=== PATIENT | male | born 1945 | race Caucasian/White ===

== ENCOUNTER 2022-10-23 09:42 | Oncology outpatient (recurring) (ONCR) | payer OTHER, SELFPAY ==
[2022-10-23 10:46] LABS: Basophils # 0.2 10^3/uL (0.0-0.1); Basophils % 1.2 %; Eosinophils # 0.2 10^3/uL (0.0-0.8); Eosinophils % 1.5 %; Hematocrit 58.5 % (42.0-52.0); Hemoglobin 18.9 g/dL (11.7-16.6); Lymphocytes # 1.7 10^3/uL (0.8-4.8); Lymphocytes % 13.5 %; Mean Corpuscular HGB Conc 32.3 g/dL (30.0-36.0); Mean Corpuscular Hemoglobin 24.5 pg (28.0-34.0); Mean Corpuscular Volume 75.8 fl (80-94); Mean Platelet Volume 9.2 fL (7.4-10.4); Monocytes # 1.1 10^3/uL (0.2-0.9); Monocytes % 9.1 %; Neutrophils # 9.28 10^3/uL (1.8-7.7); Neutrophils % 74.2 %; Nucleated Red Blood Cells % 0 %; Platelet Count 1199 10^3/cmm (130-400); Red Blood Count 7.72 10^6/uL (4.1-5.3); Red Cell Distribution Width 20.3 % (12.1-15.1); White Blood Count 12.5 10^3/uL (4.0-10.0)
[2022-10-23 11:02] LABS: Alanine Aminotransferase 12 U/L (0-41); Alkaline Phosphatase 116 U/L (40-130); Anion Gap 16.4 (5-19); Aspartate Amino Transferase 22 U/L (0-40); Blood Urea Nitrogen 14 mg/dL (8-23); Calcium 9.3 mg/dL (8.5-10.5); Carbon Dioxide 22 mmol/L (22-29); Chloride 104 mmol/L (98-107); Globulin 3.3 g/dL (1.3-4.6); Glucose 107 mg/dL (65-115); Lactate Dehydrogenase 320 U/L (135-225); Osmolality Calculated 287 mOsm/kg (285-295); Potassium 4.4 mmol/L (3.5-5.1); Sodium 138 mmol/L (136-145); Total Bilirubin 0.7 mg/dL (0.15-1.2); Total Protein 7.3 g/dL (6.6-8.7)
[2022-10-26 18:25] LABS: Erythropoietin 1.6 mIU/mL (2.6-18.5)
[2022-11-05 23:09] LABS: JAK2 V617 Block Specimen ID N; JAK2 V617 Clinical Indication NG; JAK2 V617 Mutation DETECTED (NOT DETECTED); JAK2 V617 Specimen Source EDTA
== END 2022-11-20 23:59 | disposition home or self-care (01) ==
LOC: ONCMED 09:43
PROVIDERS: Visit Provider Internal Medicine Medical Oncology
DX: D45 Polycythemia vera (principal); Z79.82 Long term (current) use of aspirin; Z79.899 Other long term (current) drug therapy; Z87.891 Personal history of nicotine dependence
CPT/HCPCS: 36415; 80053; 81270; 82668; 83615; 85025; 99205

== ENCOUNTER 2023-04-01 13:45 | Oncology outpatient (recurring) (ONCR) | payer OTHER, SELFPAY ==
[2023-04-01 14:39] VITALS: BP 135/78; PULSE 65; RESP 18; TEMP 37; O2SAT 95
[2023-04-01 14:51] LABS: Basophils # 0.1 10^3/uL (0.0-0.1); Eosinophils # 0.2 10^3/uL (0.0-0.8); Eosinophils % 1.5 %; Hematocrit 57.1 % (42.0-52.0); Hemoglobin 18.1 g/dL (11.7-16.6); Lymphocytes # 1.8 10^3/uL (0.8-4.8); Lymphocytes % 12.6 %; Mean Corpuscular HGB Conc 31.7 g/dL (30.0-36.0); Mean Corpuscular Hemoglobin 23.4 pg (28.0-34.0); Mean Corpuscular Volume 73.7 fl (80-94); Mean Platelet Volume 8.8 fL (7.4-10.4); Monocytes # 1.3 10^3/uL (0.2-0.9); Monocytes % 8.8 %; Neutrophils # 10.95 10^3/uL (1.8-7.7); Neutrophils % 75.6 %; Nucleated Red Blood Cells % 0 %; Red Blood Count 7.75 10^6/uL (4.1-5.3); Red Cell Distribution Width 21.1 % (12.1-15.1); White Blood Count 14.5 10^3/uL (4.0-10.0)
[2023-04-01 15:10] LABS: Platelet Count 1794 10^3/cmm (130-400); Slide Review Slide Review Perform
[2023-04-01 16:30] VITALS: BP 118/74; PULSE 69; RESP 18; TEMP 36.4; O2SAT 98
[2023-04-01 17:07] LABS: Alanine Aminotransferase 29 U/L (0-41); Albumin Level 4.1 g/dL (3.5-5.2); Alkaline Phosphatase 120 U/L (40-130); Aspartate Amino Transferase 31 U/L (0-40); Blood Urea Nitrogen 17 mg/dL (8-23); Calcium 9.3 mg/dL (8.5-10.5); Carbon Dioxide 23 mmol/L (22-29); Chloride 100 mmol/L (98-107); Globulin 3.6 g/dL (1.3-4.6); Glucose 86 mg/dL (65-115); Osmolality Calculated 285 mOsm/kg (285-295); Sodium 137 mmol/L (136-145); Total Bilirubin 0.6 mg/dL (0.15-1.2); Total Protein 7.7 g/dL (6.6-8.7)
[2023-04-01 17:15] LABS: Anion Gap 18.8 (5-19); Potassium 4.8 mmol/L (3.5-5.1)
== END 2023-04-22 23:59 | disposition home or self-care (01) ==
PROVIDERS: Visit Provider Internal Medicine Medical Oncology
DX: D45 Polycythemia vera (principal); Z79.82 Long term (current) use of aspirin; Z79.899 Other long term (current) drug therapy; Z87.891 Personal history of nicotine dependence
CPT/HCPCS: 36415; 80053; 85025; 99195; 99214

== ENCOUNTER 2023-04-20 19:54 | Inpatient (IN) | payer OTHER, SELFPAY ==
[2023-04-20] VITALS (18 sets, daily range): BP systolic 127–188; BP diastolic 65–99; PULSE 43–72; RESP 15–25; TEMP 36.4; O2SAT 93–98; BMI 28.5
--- NOTE | 2023-04-20 20:25 | ECG_ITS ---
[facility] Test Date: 2023-04-20 Pat Name: Scooter Elias Department: Room: [facility] Gender: Male [employer]: : 1945 Requested By: Fidencio Rivera Order Number: [id number] Yani MD: Leeanne Kaufman M.D. Measurements Intervals [place] Rate: 43 P: -1 GA: 229 QRS: 27 QRSD: 81 T: -33 QT: 448 QTc: 382 Interpretive Statements SINUS BRADYCARDIA WITH SINUS ARRHYTHMIA WITH FIRST DEGREE AV BLOCK NONSPECIFIC T-WAVE ABNORMALITY Compared to ECG 11/16/2017 11:15:16 T-wave abnormality now present Prolonged QT interval no longer present Electronically Signed On 04-20-2023 23:59:26 CDT by Leeanne Kaufman M.D. [email or web address] REBATEaultman [id number]
[2023-04-20 21:00] LABS: Basophils # 0.1 10^3/uL (0.0-0.1); Basophils % 1.3 %; Eosinophils % 0.4 %; Hematocrit 47.9 % (37-53); Lymphocytes # 1.2 10^3/uL (0.8-4.8); Lymphocytes % 22.2 %; Mean Corpuscular HGB Conc 32.4 g/dL (30-55); Mean Corpuscular Hemoglobin 23.9 pg (27-33); Mean Corpuscular Volume 73.8 fl (82-101); Monocytes # 0.2 10^3/uL (0.2-0.9); Monocytes % 3.9 %; Neutrophils # 3.83 10^3/uL (1.8-7.7); Nucleated Red Blood Cells % 0 %; Platelet Count 323 10^3/cmm (157-399); Red Blood Count 6.49 10^6/uL (3.85-5.65); Red Cell Distribution Width 20.9 % (12.1-15.1); White Blood Count 5.32 10^3/uL (3.29-11.43)
--- NOTE | 2023-04-20 21:06 | PC.NURSE ---
Addendum entered by Enedina Jernigan RN 04/20/23 21:16: Verbal order to start Heparin drip @2049. Original Note: Admit to ICU: Pt arrived to ICU 4 via stretcher w/ EMS crew @bedside @1952. Pt reporting 0/[address] Rivera contacted to update on pt arrival. New order for lab work and EKG. Dr. Rivera @bedside around 2049 to speak w/ pt.
--- NOTE | 2023-04-20 21:17 | PM.HP ---
Providers/Chief Complaint Admitting Physician: Nicole Primary Care Provider: Vicente Rosa DO Chief Complaint: Left PE, Bradycardia History of Present Illness Scooter Elias Sr is a 77 year old male with recent history of stroke (11/2022) and NV (02/2023) and recently diagnosed polycythemia vera presents due to his heart rate monitor company alerting him that his heart rate was low. Per the patient's significant other who he does not live with she states that patient's sister reports that he has been short of breath weak and dizzy at home. Patient stoically denies this. He was seen at [facility] he was bradycardic. Due to this history given by the sister of shortness of breath CTA of the chest was performed that found a pulmonary embolus in the left upper lobe region. He was started on heparin and transferred here to [facility]. To me the patient has no complaints. Again the significant other reports that patient has had shortness of breath and dizziness over the last couple of days. He wears a heart monitor and has been contacted twice now regarding a low heart rate. He currently denies chest pain shortness of breath dizziness or lightheadedness. He does report dizziness upon laying at times. Review of Systems Const: Denies: fever(s) or chills Eyes: Denies: change in vision ENMT: Denies: throat pain or nasal congestion Card: Denies: chest pain or palpitations Resp: Denies: dyspnea or productive cough GI: Denies: abdominal pain, nausea, vomiting or change in stool character : Denies: difficulty urinating or dysuria Musc: Denies: back pain or extremity pain Skin/Breast: Denies: rash or lesions Neuro: Denies: headache(s) or dizziness Psych: Denies: anxiety or depression Domingo/Lymph: Denies: easy bruising or easy bleeding Medications/Allergies Home Medications Medication Instructions Recorded Confirmed Last Taken Type aspirin 81 mg chewable tablet 81 mg PO DAILY 04/01/23 04/20/23 04/19/23 History atorvastatin 80 mg tablet 80 mg PO DAILY 04/01/23 04/20/23 04/19/23 History clopidogrel 75 mg tablet 75 mg PO DAILY 04/01/23 04/20/23 04/19/23 History hydroxyurea 500 mg capsule 1,000 mg PO BID #120 caps 04/01/23 04/20/2323 Rx lisinopril 5 mg tablet 5 mg PO DAILY 04/01/23 04/20/23 04/19/23 History Allergies Allergy/AdvReac Type Severity Reaction Status Date / Time No Known Allergies Allergy Verified 04/20/23 20:15 PFSH Acute PFSH: Medical History Benign prostatic hyperplasia Coronary artery disease Erectile dysfunction History of myocardial infarction History of stroke Vitamin D deficiency Surgical History History of back surgery History of cholecystectomy History of coronary artery stent placement History of foot surgery Bone spur both heels Family History Father Lung disease Denies family history of Diabetes CAD (coronary artery disease) Clotting disorder Dementia Hyperlipidemia Psychiatric illness Chronic kidney disease (CKD) Suicide Anesthesia complication Bleeding disorder Cancer Hypertension Stroke Social History Smoking and tobacco status: former smoker Quit status (tobacco): has quit using tobacco Former quit date comment: smoked 6 months, stopped 30 years ago Vitals/I&O/Wt Last Vital Signs Pulse 43 L 04/20/23 20:27 O2 Del Method Room Air 04/20/23 20:09 Weight last 48 hrs Weight 98.293 kg Physical Exam Narrative: [age]-year-old male in no acute distress at time of exam Neurologic: Alert and oriented to person place time and situation patient is nonfocal. HEENT: Head is normocephalic atraumatic pupils equal round reactive to light and accommodation extraocular muscles are intact there is no scleral icterus neck is supple no JVD carotid bruits or lymphadenopathy mucous membranes are moist pink without lesions or exudates Chest: Rises symmetrically with inspiration Heart: Normal S1-S2 without murmurs clicks gallops or rubs Respiratory. Clear to auscultation no wheezes rales or rhonch abdomen soft nontender nondistended positive bowel sounds no hepatosplenomegaly Extremities: 4 present no significant peripheral edema Back: No significant scoliosis or kyphosis identified no CVA tenderness Lymphatic: No supraclavicular axillary or inguinal lymph adenopathy noted Skin: Warm and dry to touch no lesions or rashes noted Psych: Mood and affect are appropriate. Data 04/20/23 20:52 04/20/23 20:52 Other Labs: CTA done at another hospital reports of a left upper lobe thrombus. A&P Assessment and plan (1) Polycythemia rubra vera: (2) Pulmonary embolism: (3) Bradycardia: (4) Status post CVA: (5) Status post myocardial infarction: Plan Patient was admitted to the ICU for close monitoring due to the bradycardia. He will be restarted on heparin. For now we will continue aspirin and Plavix due to recent NV with stent 1 month ago. Currently polycythemia vera is controlled on hydroxyurea with a normal platelet level. Initially, I had concerns regarding the diagnosis of PE but once the significant other explained to me patient's symptoms prior the diagnosis of pulmonary embolus is less suspect. There is literature that discusses the over diagnosis of PE due to the sensitivity of our CT scans now. If this is at all a concern recommend repeat CTA here. patient is lacking the typical sign of tachycardia patient could have shortness of breath and lightheadedness due to bradycardia. Tomorrow he can get up and walk and assess his symptoms. We will continue patient's CAROLYN inhibitor. If blood pressure continues to be elevated would increase dose. For now using as needed hydralazine. Otherwise continue home meds for recent diagnosis of stroke and NV. Attestations Medical Necessity Statement*: It is likely patient's care will necessitate 2 midnight stay for PE and bradycardia. Coding Level of Care Code Acute Code for [facility] Fwd Diagnoses Polycythemia rubra vera D45 Pulmonary embolism I26.99 Bradycardia R00.1 Status post CVA Z86.73 Status post myocardial infarction I25.2
[2023-04-20 21:20] LABS: Blood Urea Nitrogen 19 mg/dL (8-23); Calcium 8.8 mg/dL (8.5-10.5); Carbon Dioxide 28 mmol/L (22-29); Chloride 104 mmol/L (98-107); Glucose 91 mg/dL (65-115); Osmolality Calculated 288 mOsm/kg (285-295); Sodium 138 mmol/L (136-145)
[2023-04-20] MEDS: heparin drip 25,000 UNIT/500 ML PREMIX 27.99 UNIT IV (21:26)
[2023-04-20 21:27] LABS: Partial Thromboplastin Time 136.3 SECONDS (23.9-36.7)
[2023-04-20] MEDS: hyDRALAzine 20 mg/mL INJ 1 mL 10 MG IVP (22:51)
[2023-04-21] VITALS (38 sets, daily range): BP systolic 104–159; BP diastolic 48–83; PULSE 40–76; RESP 16–24; TEMP 36.3–37.1; O2SAT 92–97
[2023-04-21 03:01] LABS: Partial Thromboplastin Time 79.5 SECONDS (23.9-36.7)
[2023-04-21 03:19] LABS: Basophils # 0.1 10^3/uL (0.0-0.1); Basophils % 1.3 %; Eosinophils % 0.4 %; Hematocrit 48.3 % (37-53); Lymphocytes # 1.2 10^3/uL (0.8-4.8); Lymphocytes % 22.2 %; Mean Corpuscular HGB Conc 32.5 g/dL (30-55); Mean Corpuscular Hemoglobin 23.9 pg (27-33); Mean Corpuscular Volume 73.5 fl (82-101); Mean Platelet Volume 8.8 fL (7.4-10.4); Monocytes # 0.2 10^3/uL (0.2-0.9); Monocytes % 3.7 %; Neutrophils # 3.88 10^3/uL (1.8-7.7); Neutrophils % 72.2 %; Nucleated Red Blood Cells % 0 %; Platelet Count 282 10^3/cmm (157-399); Red Blood Count 6.57 10^6/uL (3.85-5.65); Red Cell Distribution Width 20.8 % (12.1-15.1); White Blood Count 5.37 10^3/uL (3.29-11.43)
[2023-04-21 03:33] LABS: Anion Gap 12.7 (5-19); Blood Urea Nitrogen 20 mg/dL (8-23); Calcium 8.8 mg/dL (8.5-10.5); Carbon Dioxide 25 mmol/L (22-29); Chloride 106 mmol/L (98-107); Glucose 86 mg/dL (65-115); Osmolality Calculated 292 mOsm/kg (285-295); Potassium 3.7 mmol/L (3.5-5.1); Sodium 140 mmol/L (136-145)
[2023-04-21] MEDS: clopidogrel 75 mg Tablet PO (09:10)
[2023-04-21] MEDS: aspirin 81 mg Chew Tablet PO (09:10)
[2023-04-21] MEDS: lisinopril 5 mg Tablet PO (09:11)
[2023-04-21] MEDS: docusate sodium 100 mg Capsule PO (09:11)
[2023-04-21] MEDS: hydroxyurea 500 mg Capsule 1000 MG PO ×2 (09:12→21:08)
[2023-04-21 09:50] LABS: Partial Thromboplastin Time 55.7 SECONDS (23.9-36.7)
--- NOTE | 2023-04-21 09:57 | PC.NURSE ---
Heparin Drip: PTT 55.7 - No change according to protocol.
[2023-04-21 11:17] LABS: Magnesium 1.9 mg/dL (1.7-2.3); Thyroid Stimulating Hormone 1.75 uIU/mL (0.27-4.20)
--- NOTE | 2023-04-21 12:59 | USCV_ITS ---
Curt Scooter Age: 77 Gender: M : 1945 Exam Date: 04/21/2023 15:29 Ordering Phys: Francisco Singh MD Technologist: MAGUI Exam Location: [facility] Indication: BRADYCARDIA, PE BP: 113 / 72 HR: 55 Rhythm: Sinus Technical Quality: Suboptimal MEASUREMENTS (Male / Female) Normal Values 2D ECHO LVOT Diameter 2.0 cm LV Ejection Fraction MOD 2C 64.5 % LV Ejection Fraction 2C AL 66.9 % LA Diameter 3.6 cm LA Width 3.5 cm LA Height 5.2 cm RA Width 4.2 cm RA Height 5.6 cm Aorta at Sinotubular Diameter 2.2 cm M-MODE Aortic Annulus Diameter 3.5 cm LA Ao Ratio MM 1.0 DOPPLER AV Peak Velocity 177.5 cm/s LVOT Peak Velocity 104.0 cm/s AV Area Cont Eq vti 2.2 cm squared AV Area Cont Eq pk 1.9 cm squared MV Peak Velocity 88.0 cm/s MV Area PHT 2.1 cm squared Mitral E to A Ratio 0.6 MV E' Velocity 30.0 cm/s Mitral E to MV E' Ratio 4.2 Mitral E to LV E' Lateral Ratio 3.2 Mitral E to LV E' Septal Ratio 6.0 TR Peak Velocity 159.7 cm/s TR Peak Gradient 10.2 mmHg TR Mean Velocity 116.8 cm/s TR Mean Gradient 6.4 mmHg TR Velocity Time Integral 37.0 cm TV Peak E Velocity 50.0 cm/s Right Atrial Pressure 8.0 mmHg Pulmonary Artery Systolic Pressu 18.2 mmHg PV Peak Velocity 71.0 cm/s RV Acceleration Time 0.2 s RV Ejection Time 0.4 s RV AcT/ET 0.5 FINDINGS Left Ventricle Left ventricle is normal size. LV systolic function is normal with EF of 55 to 60%. No regional wall motion abnormalities are seen. Grade 1 diastolic dysfunction Right Ventricle Normal in size and function Right Atrium Normal in size Left Atrium Normal size Mitral Valve Structurally normal mitral valve. Trace mitral regurgitation. Aortic Valve Structurally normal aortic valve. Mild aortic stenosis with aortic valve area of 1.85 cm squared and mean gradient across aortic valve of 11 mmHg. Tricuspid Valve Mild tricuspid regurgitation. Pulmonary artery systolic pressure is normal. Pulmonic Valve Not well-visualized Pericardium Normal Aorta Normal in size IVC Not well visualized CONCLUSIONS LV systolic function is normal with EF of 55 to 60% Grade 1 diastolic dysfunction Trace mitral regurgitation Mild aortic stenosis Mild tricuspid regurgitation Compared to prior echocardiogram from 2018, patient now has mild aortic stenosis. Jaya Juan MD (Electronically Signed) Final Date: 21 April 2023 17:13 S
--- NOTE | 2023-04-21 14:43 | PC.NURSE ---
Patient transferred to CSU 106, Patient resting in bed with and RN at bedside, patient had no questions at the time of transfer. All belongings with patient are at bedside.
[2023-04-21 16:15] LABS: Partial Thromboplastin Time 49.8 SECONDS (23.9-36.7)
--- NOTE | 2023-04-21 17:15 | P.PN_ITS ---
Subjective Subjective: He states he doing all right. Denies any lightheadedness, dizziness, chest pain, he is not short of breath. Denies pleuritic pain or discomfort. Vitals/I&O/Wt Last Vital Signs Temp 98.8 F 04/21/23 13:00 Pulse 52 L 04/21/23 16:00 Resp 16 04/21/23 16:00 BP 127/72 04/21/23 16:00 Pulse Ox 94 04/21/23 16:00 O2 Del Method Room Air 04/21/23 16:00 04/21/23 04/21/23 04/21/23 06:59 14:59 22:59 Intake Total 121.633 / 125.365 360 / 360 Output Total 900 / 1440 1050 / 1050 Balance -778.367 / -1314.635 -690 / -690 Weight last 48 hrs Weight 98.384 kg Weight 98.293 kg Physical Exam Const: COMMON NORMALS: patient oriented x3 and alert GENERAL APPEARANCE: cooperative ORIENTATION/CONSCIOUSNESS: Yes awake HENMT: COMMON NORMALS: oropharynx normal Neck/C-Spine: COMMON NORMALS: no JVD Chest: OTHER: Cardiac event monitor. Resp: COMMON NORMALS: normal respiratory effort and clear to auscultation bilaterally AUSCULTATION: clear to auscultation bilaterally Cardio: COMMON NORMALS: no JVD, regular rhythm, S1 normal heart sound present, S2 normal heart sound present and No murmurs present (Cardio) RHYTHM: regular rhythm HEART SOUNDS: S1 normal heart sound present and S2 normal heart sound present GI: COMMON NORMALS: Normal to inspection, nondistended, normoactive bowel sounds present, Soft to palpation and non-tender PALPATION: Yes Soft to palpation Extremity: COMMON NORMALS: no joint enlargement and no pedal edema Neuro: COMMON NORMALS: patient oriented x3 and moves all extremities SENSORIUM/ORIENTATION: Yes alert Skin: COMMON NORMALS: no rashes or lesions noted GENERAL SKIN EXAM: no rashes or lesions noted Data 04/21/23 02:33 04/21/23 02:33 A&P Assessment and plan (1) Polycythemia rubra vera: Continue hydroxyurea. Follow-up with hematology. (2) Pulmonary embolism: (3) Bradycardia: (4) Status post CVA: (5) Status post myocardial infarction: Plan PE: Maintaining blood pressure. No chest pain. Oxygenation in mid 90s on room air. Continue treatment of PE, currently on heparin drip. At risk bleeding, also on dual antiplatelets, monitor for any signs of bleeding. CBC reviewed. Recheck CBC. Discussed with him transition to oral anticoagulation, discussed options, risks, discussed transition tonight to Eliquis. Can move to CSU. Discussed with case management in rounds. Has a PCP. Bradycardia: Noted sinus bradycardia, at times down as low as 37 for a brief moment, it does appear to be asymptomatic, however, and he is already being assessed with cardiac exercise specialist with his physical meteorologist. Continue as currently. Did request to check magnesium and his TSH. Reviewed chemistry, potassium noted 3.7. CAD: On aspirin Plavix due to recent NE 1 month ago for. We will see if can reach his physical meteorologist to discuss antiplatelet therapy given he will be needing anticoagulation. HTN: BP at goal. Continue lisinopril. Recent diagnosis of stroke and NE. Attestations Medical Necessity Statement*: Continue admission for assessment management of PE, bradycardia. Diagnoses Polycythemia rubra vera D45 Pulmonary embolism I26.99 Bradycardia R00.1 Status post CVA Z86.73 Status post myocardial infarction I25.2
[2023-04-21] MEDS: atorvastatin 40 mg Tablet 80 MG PO (21:08)
[2023-04-21] MEDS: apixaban 5 mg Tablet 10 MG PO (21:08)
[2023-04-21 23:00] LABS: Partial Thromboplastin Time 32.8 SECONDS (23.9-36.7)
[2023-04-22] VITALS (14 sets, daily range): BP systolic 119–152; BP diastolic 68–78; PULSE 48–64; RESP 17–22; TEMP 36.4–36.6; O2SAT 93–98
[2023-04-22 04:53] LABS: Basophils # 0.1 10^3/uL (0.0-0.1); Basophils % 1.6 %; Eosinophils % 0.6 %; Hematocrit 49.1 % (37-53); Lymphocytes # 1.1 10^3/uL (0.8-4.8); Lymphocytes % 21.6 %; Mean Corpuscular HGB Conc 32.6 g/dL (30-55); Mean Corpuscular Volume 73.5 fl (82-101); Mean Platelet Volume 9.1 fL (7.4-10.4); Monocytes # 0.2 10^3/uL (0.2-0.9); Monocytes % 3.9 %; Neutrophils # 3.49 10^3/uL (1.8-7.7); Neutrophils % 72.1 %; Nucleated Red Blood Cells % 0 %; Platelet Count 261 10^3/cmm (157-399); Red Blood Count 6.68 10^6/uL (3.85-5.65); White Blood Count 4.85 10^3/uL (3.29-11.43)
[2023-04-22 05:28] LABS: Blood Urea Nitrogen 20 mg/dL (8-23); Calcium 8.7 mg/dL (8.5-10.5); Carbon Dioxide 22 mmol/L (22-29); Chloride 106 mmol/L (98-107); Glucose 100 mg/dL (65-115); Osmolality Calculated 289 mOsm/kg (285-295); Sodium 138 mmol/L (136-145)
[2023-04-22] MEDS: aspirin 81 mg Chew Tablet PO (10:48)
[2023-04-22] MEDS: hydroxyurea 500 mg Capsule 1000 MG PO (10:48)
[2023-04-22] MEDS: docusate sodium 100 mg Capsule PO (10:48)
[2023-04-22] MEDS: clopidogrel 75 mg Tablet PO (10:48)
[2023-04-22] MEDS: lisinopril 5 mg Tablet PO (10:48)
[2023-04-22] MEDS: apixaban 5 mg Tablet 10 MG PO (10:48)
--- NOTE | 2023-04-22 11:19 | P.DS_ITS ---
Discharge Providers Date of Admission: 04/20/23 19:54 Date of Discharge: April 22, 2023 Attending Provider at Admission: Favian Baez MD Attending Provider at Discharge: Francisco Singh Primary Care Provider: Vicente Rosa DO Diagnoses at Discharge Discharge Diagnosis (1) Polycythemia rubra vera: Status: Acute (2) Pulmonary embolism: Status: Acute (3) Bradycardia: Status: Acute (4) Status post CVA: Status: Acute (5) Status post myocardial infarction: Status: Acute Reason for Visit Reason for Visit: Left PE, Bradycardia Brief History: Scooter Elias Sr is a 77 year old male with recent history of stroke (11/2022)? and AK (02/2023) and recently diagnosed polycythemia vera presents due to his heart rate monitor company alerting him that his heart rate was low.? Per the patient's significant other who he does not live with she states that patient's sister reports that he has been short of breath weak and dizzy at home.? Patient stoically denies this.? He was seen at [facility] he was bradycardic.? Due to this history given by the sister of shortness of breath CTA of the chest was performed that found a pulmonary embolus in the left upper lobe region.? He was started on heparin and transferred here to [facility]. To me the patient has no complaints.? Again the significant other reports that patient has had shortness of breath and dizziness over the last couple of days.? He wears a heart monitor and has been contacted twice now regarding a low heart rate.? He currently denies chest pain shortness of breath dizziness or lightheadedness.? He does report dizziness upon laying at times. Hospital Course Hospital Course He did well with anticoagulation, maintaining hemoglobin. He does report that he occasionally gets some blood on tissue paper and occasionally on the stool, however, no bleeding here, hemoglobin stayed steady around 16,000. He was transitioned to Eliquis. echocardiogram showed no right ventricular strain. He is maintaining oxygenation on room air. Home oxygen evaluation is requested prior to discharge. Remaining bradycardic, heart rates mostly 50s-60s. Denies any lightheadedness, dizziness, denies any fatigue on exertion. Although as noted above some reports from outside sources to the contrary. Continues with monitor technician, he will be following up with cardiology. Discussed with his senior digital designer, as he had a stent placed 03/19, per report looks like stent in RCA, although does have LAD disease as well though not stented, continue with Plavix or antiplatelet medication, but as he is started on Eliquis we will hold off on aspirin for now given also some reports of bright red blood per rectum. Please follow-up with him following PE, regarding bradycardia, regarding anticoagulation, as well as arrange for colonoscopy evaluation of episodes of bright red blood per rectum. He knows to maintain caution, discontinue coagulation in case of any worsened bleeding or uncontrolled bleeding and seek medical attention immediately or any other worsening or new concerning symptoms. Physical Exam Narrative: Accompanied by his . Const: COMMON NORMALS: patient oriented x3 and alert GENERAL APPEARANCE: cooperative ORIENTATION/CONSCIOUSNESS: Yes awake HENMT: COMMON NORMALS: oropharynx normal Neck/C-Spine: COMMON NORMALS: no JVD Chest: OTHER: Cardiac event monitor. Resp: COMMON NORMALS: normal respiratory effort and clear to auscultation bilaterally AUSCULTATION: clear to auscultation bilaterally Cardio: COMMON NORMALS: no JVD, regular rhythm, S1 normal heart sound present, S2 normal heart sound present and No murmurs present (Cardio) RATE: bradycardic (60s) RHYTHM: regular rhythm HEART SOUNDS: S1 normal heart sound present and S2 normal heart sound present GI: COMMON NORMALS: Normal to inspection, nondistended, normoactive bowel sounds present, Soft to palpation and non-tender PALPATION: Yes Soft to palpation Extremity: COMMON NORMALS: no joint enlargement and no pedal edema Neuro: COMMON NORMALS: patient oriented x3 and moves all extremities SENSORIUM/ORIENTATION: Yes alert Skin: COMMON NORMALS: no rashes or lesions noted GENERAL SKIN EXAM: no rashes or lesions noted Discharge Data Studies Completed and Pending Completed Studies During Hospitalization Category Date Time Status CV. echo complete* [id number] Routine Ultrasound 04/21/23 12:59 Completed Pending at discharge Category Date Time Status Basic Metabolic Panel AM LABS Lab 04/23/23 04:00 Ordered Basic Metabolic Panel AM LABS Lab 04/24/23 04:00 Ordered Complete Blood Count w/Auto AM LABS Lab 04/23/23 04:00 Ordered Complete Blood Count w/Auto AM LABS Lab 04/24/23 04:00 Ordered Platelet Count Q2D Lab 04/24/23 04:00 Ordered Laboratory Results WBC 4.85 10^3/uL (3.29-11.43) 04/22/23 04:21 RBC 6.68 10^6/uL (3.85-5.65) H 04/22/23 04:21 Hgb 16.00 g/dL (11.27-16.99) 04/22/23 04:21 Hct 49.1 % (37-53) 04/22/23 04:21 MCV 73.5 fl (82-101) L 04/22/23 04:21 MCH 24.0 pg (27-33) L 04/22/23 04:21 MCHC 32.6 g/dL (30-55) 04/22/23 04:21 RDW 21.0 % (12.1-15.1) H 04/22/23 04:21 Plt Count 261 10^3/cmm (157-399) 04/22/23 04:21 MPV 9.1 fL (7.4-10.4) 04/22/23 04:21 Neut % (Auto) 72.1 % 04/22/23 04:21 Lymph % (Auto) 21.6 % 04/22/23 04:21 [place] % (Auto) 3.9 % 04/22/23 04:21 Eos % (Auto) 0.6 % 04/22/23 04:21 Baso % (Auto) 1.6 % 04/22/23 04:21 Neut # (Auto) 3.49 10^3/uL (1.8-7.7) 04/22/23 04:21 Lymph # (Auto) 1.1 10^3/uL (0.8-4.8) 04/22/23 04:21 [place] # (Auto) 0.2 10^3/uL (0.2-0.9) 04/22/23 04:21 Eos # (Auto) 0.0 10^3/uL (0.0-0.8) 04/22/23 04:21 Baso # (Auto) 0.1 10^3/uL (0.0-0.1) 04/22/23 04:21 Nucleated RBC % (auto) 0 % 04/22/23 04:21 Nucleated RBCs # 0.0 /100WBC 04/22/23 04:21 APTT 32.8 SECONDS (23.9-36.7) 04/21/23 22:35 Sodium 138 mmol/L (136-145) 04/22/23 04:21 Potassium 4.0 mmol/L (3.5-5.1) 04/22/23 04:21 Chloride 106 mmol/L (98-107) 04/22/23 04:21 Carbon Dioxide 22 mmol/L (22-29) 04/22/23 04:21 Anion Gap 14.0 (5-19) 04/22/23 04:21 BUN 20 mg/dL (8-23) 04/22/23 04:21 Creatinine 0.8 mg/dL (0.7-1.2) 04/22/23 04:21 GFR Calculation Not Reportable 04/22/23 04:21 Glucose 100 mg/dL (65-115) 04/22/23 04:21 Calculated Osmolality 289 mOsm/kg (285-295) 04/22/23 04:21 Calcium 8.7 mg/dL (8.5-10.5) 04/22/23 04:21 Magnesium 1.9 mg/dL (1.7-2.3) 04/21/23 02:33 TSH 1.75 uIU/mL (0.27-4.20) 04/21/23 02:33 Vitals Last Vital Signs Temp 97.6 F 04/22/23 05:49 Pulse 59 L 04/22/23 08:07 Resp 20 H 04/22/23 08:07 BP 119/70 04/22/23 08:07 Pulse Ox 95 04/22/23 11:13 O2 Del Method Room Air 04/22/23 08:07 Discharge Plan Discharge Patient Disposition: Home Condition: Stable Prescriptions: New Eliquis 5 mg Tablet 10 mg PO BID@0900,2100 Qty: 180 0RF Rx Instructions: 10mg BID for 7 days then 5mg BID Continued atorvastatin 80 mg tablet 80 mg PO DAILY lisinopril 5 mg tablet 5 mg PO DAILY clopidogrel 75 mg tablet 75 mg PO DAILY hydroxyurea 500 mg capsule 1,000 mg PO BID Qty: 120 0RF Discontinued aspirin 81 mg tablet,chewable 81 mg PO DAILY Discharge Orders: Discharge Order (Routine); Ordered 04/22/23 Ordered By: Francisco Singh Referrals: Jaya Juan M.D [Physician] - (As per apponitment) Vicente Rosa, DO [Primary Care Provider] - 4-7 days Discharge Diet: Cardiac Patient Instructions: Apixaban (By mouth), Pulmonary Embolism (GEN), Bradycardia (GEN) Activity Restrictions/Additional Instructions: Continue to monitor blood pressures and heart rates at home 3 times daily. Write down values to bring to her appointment. Continue monitor technician. Follow-up with your senior digital designer for assessment of the results. Follow-up with your primary doctor and senior digital designer regarding pulmonary embolism, coronary disease, recent stent, change in medications to Plavix and Eliquis with discontinuation of aspirin. Follow-up with your primary doctor for arrangements for colonoscopy due to intermittent blood on tissue paper and stool. In case of worsening blood in stool or any bleeding that is not subsiding, stop the blood thinner medication and seek medical attention immediately. Discharge Attestations Time Spent in Discharge Care*: greater than 30 min Quality Metrics Clinical Quality Measures [ No reported AMI, CVA or VTE this stay] Coding Level of Care Code 26291 Total time (in minutes) for Discharge: 45 Diagnoses Polycythemia rubra vera D45 Pulmonary embolism I26.99 Bradycardia R00.1 Status post CVA Z86.73 Status post myocardial infarction I25.2
--- NOTE | 2023-04-22 17:03 | PC.NURSE ---
Discharge Note Patient discharged to [home] via [wheelchair] accompanied by [self]. Pt being taken to the ER where his and [id number] are located at this time with the intentions of going home soon. Discharge instructions reviewed with patient and/or inside account representative. Mobile pharmacy medications and/or prescriptions provided. Belongings/home medications returned.
== END 2023-04-22 16:55 | disposition home or self-care (01) | DRG 176 ==
LOC: ICU 04-21 08:44 → CSU 04-21 16:08
PROVIDERS: Internal Medicine; Admitting Provider Internal Medicine; PCP Emergency Medicine Emergency Medical Services; Visit Provider Internal Medicine
DX: I26.99 Other pulmonary embolism without acute cor pulmonale (principal); D45 Polycythemia vera; Z86.72 Personal history of thrombophlebitis; Z86.73 Personal history of transient ischemic attack (TIA), and cerebral infarction without residual deficits; I25.2 Old myocardial infarction; R00.1 Bradycardia, unspecified; I25.10 Atherosclerotic heart disease of native coronary artery without angina pectoris; Z95.5 Presence of coronary angioplasty implant and graft; Z79.02 Long term (current) use of antithrombotics/antiplatelets; Z79.899 Other long term (current) drug therapy; Z87.891 Personal history of nicotine dependence; I10 Essential (primary) hypertension
CPT/HCPCS: 36415; 80048; 83735; 84443; 85025; 85730; 93005; 93306; 94760; J0360; J1644; J8999

== ENCOUNTER 2023-04-29 12:34 | Oncology outpatient (recurring) (ONCR) | payer OTHER, SELFPAY ==
[2023-04-29 12:40] VITALS: BP 116/70; PULSE 56; RESP 18; TEMP 36.8; O2SAT 95
[2023-04-29 12:53] LABS: Basophils # 0.1 10^3/uL (0.0-0.1); Basophils % 1.3 %; Eosinophils % 0.3 %; Hematocrit 48.2 % (37-53); Lymphocytes # 1.1 10^3/uL (0.8-4.8); Lymphocytes % 28.7 %; Mean Corpuscular HGB Conc 33.2 g/dL (30-55); Mean Corpuscular Hemoglobin 24.5 pg (27-33); Mean Corpuscular Volume 73.9 fl (82-101); Mean Platelet Volume 8.9 fL (7.4-10.4); Monocytes # 0.2 10^3/uL (0.2-0.9); Monocytes % 5.4 %; Neutrophils # 2.49 10^3/uL (1.8-7.7); Neutrophils % 63.8 %; Nucleated Red Blood Cells % 0 %; Platelet Count 343 10^3/cmm (157-399); Red Blood Count 6.52 10^6/uL (3.85-5.65); Red Cell Distribution Width 22.3 % (12.1-15.1)
[2023-04-29 14:55] LABS: Alanine Aminotransferase 47 U/L (0-41); Albumin Level 3.8 g/dL (3.5-5.2); Alkaline Phosphatase 104 U/L (40-130); Anion Gap 13.4 (5-19); Aspartate Amino Transferase 31 U/L (0-40); Blood Urea Nitrogen 20 mg/dL (8-23); Carbon Dioxide 24 mmol/L (22-29); Chloride 103 mmol/L (98-107); Glucose 94 mg/dL (65-115); Lactate Dehydrogenase 379 U/L (135-225); Osmolality Calculated 284 mOsm/kg (285-295); Potassium 4.4 mmol/L (3.5-5.1); Sodium 136 mmol/L (136-145); Total Bilirubin 0.6 mg/dL (0.15-1.2); Total Protein 6.8 g/dL (6.6-8.7)
[2023-04-29 17:17] VITALS: BP 108/69; PULSE 67; RESP 18; TEMP 36.3; O2SAT 96
== END 2023-05-22 23:59 | disposition home or self-care (01) ==
PROVIDERS: PCP Emergency Medicine Emergency Medical Services; Visit Provider Internal Medicine Medical Oncology
DX: D45 Polycythemia vera (principal); Z79.82 Long term (current) use of aspirin; Z79.899 Other long term (current) drug therapy; Z87.891 Personal history of nicotine dependence
CPT/HCPCS: 36415; 80053; 83615; 85025; 99195; 99214

== ENCOUNTER → 2023-05-03 10:11 | Outpatient (BNVA) | payer OTHER, SELFPAY | PROVIDERS: PCP Emergency Medicine Emergency Medical Services; Visit Provider Surgery | DX: I25.2 Old myocardial infarction; K92.1 Melena | CPT/HCPCS: 99204 ==

== ENCOUNTER → 2023-05-04 11:34 | Outpatient (BNVA) | payer OTHER, SELFPAY | PROVIDERS: PCP Emergency Medicine Emergency Medical Services; Visit Provider Internal Medicine | DX: I26.99 Other pulmonary embolism without acute cor pulmonale (principal); I25.2 Old myocardial infarction; Z86.73 Personal history of transient ischemic attack (TIA), and cerebral infarction without residual deficits; R00.1 Bradycardia, unspecified; Z79.01 Long term (current) use of anticoagulants; Z87.891 Personal history of nicotine dependence | CPT/HCPCS: 99204 ==

== ENCOUNTER 2023-06-01 10:56 | Oncology outpatient (recurring) (ONCR) | payer OTHER, SELFPAY ==
[2023-06-01 11:01] VITALS: BP 143/79; PULSE 56; RESP 16; TEMP 36.6; O2SAT 95
[2023-06-01 11:30] LABS: Basophils % 0.2 %; Eosinophils % 0.7 %; Hematocrit 43.2 % (37-53); Lymphocytes # 1.2 10^3/uL (0.8-4.8); Lymphocytes % 21.4 %; Mean Corpuscular HGB Conc 33.1 g/dL (30-55); Mean Corpuscular Hemoglobin 27.1 pg (27-33); Mean Corpuscular Volume 81.8 fl (82-101); Mean Platelet Volume 8.6 fL (7.4-10.4); Monocytes # 0.6 10^3/uL (0.2-0.9); Monocytes % 10.6 %; Neutrophils # 3.83 10^3/uL (1.8-7.7); Neutrophils % 66.8 %; Nucleated Red Blood Cells % 0 %; Platelet Count 420 10^3/cmm (157-399); Red Blood Count 5.28 10^6/uL (3.85-5.65); White Blood Count 5.74 10^3/uL (3.29-11.43)
[2023-06-01 11:59] LABS: Alanine Aminotransferase 27 U/L (0-41); Alkaline Phosphatase 102 U/L (40-130); Anion Gap 12.4 (5-19); Aspartate Amino Transferase 24 U/L (0-40); Blood Urea Nitrogen 18 mg/dL (8-23); Calcium 9.1 mg/dL (8.5-10.5); Carbon Dioxide 28 mmol/L (22-29); Chloride 102 mmol/L (98-107); Creatinine Clr Calc Pharmacy 74.2717; Globulin 3.3 g/dL (1.3-4.6); Glucose 92 mg/dL (65-115); Lactate Dehydrogenase 196 U/L (135-225); Osmolality Calculated 288 mOsm/kg (285-295); Potassium 4.4 mmol/L (3.5-5.1); Sodium 138 mmol/L (136-145); Total Bilirubin 0.5 mg/dL (0.15-1.2); Total Protein 7.3 g/dL (6.6-8.7)
[2023-06-01 12:44] LABS: Slide Review Slide Review Perform
== END 2023-06-22 23:59 | disposition home or self-care (01) ==
PROVIDERS: PCP Emergency Medicine Emergency Medical Services; Visit Provider Internal Medicine Medical Oncology
DX: D45 Polycythemia vera; R53.83 Other fatigue; Z87.891 Personal history of nicotine dependence
CPT/HCPCS: 36415; 80053; 83615; 85025; 99214

== ENCOUNTER → 2023-07-30 10:03 | Outpatient (BNVA) | payer OTHER, SELFPAY | PROVIDERS: PCP Emergency Medicine Emergency Medical Services; Visit Provider Nurse Practitioner Family | DX: R00.1 Bradycardia, unspecified (principal) | CPT/HCPCS: 99213 ==

== ENCOUNTER 2023-09-06 10:59 | Oncology outpatient (recurring) (ONCR) | payer OTHER, SELFPAY ==
[2023-09-06 11:24] LABS: Basophils # 0.1 10^3/uL (0.0-0.1); Basophils % 0.5 %; Eosinophils # 0.1 10^3/uL (0.0-0.8); Eosinophils % 1.3 %; Hematocrit 49.9 % (37-53); Lymphocytes # 1.5 10^3/uL (0.8-4.8); Lymphocytes % 15.5 %; Mean Corpuscular HGB Conc 32.3 g/dL (30-55); Mean Corpuscular Hemoglobin 31.1 pg (27-33); Mean Corpuscular Volume 96.5 fl (82-101); Mean Platelet Volume 9.7 fL (7.4-10.4); Monocytes # 0.7 10^3/uL (0.2-0.9); Monocytes % 7.7 %; Neutrophils # 7.05 10^3/uL (1.8-7.7); Neutrophils % 74.6 %; Nucleated Red Blood Cells % 0 %; Platelet Count 648 10^3/cmm (157-399); Red Blood Count 5.17 10^6/uL (3.85-5.65); Red Cell Distribution Width 14.2 % (12.1-15.1); White Blood Count 9.46 10^3/uL (3.29-11.43)
[2023-09-06 11:41] LABS: Alanine Aminotransferase 11 U/L (0-41); Alkaline Phosphatase 93 U/L (40-130); Aspartate Amino Transferase 18 U/L (0-40); Blood Urea Nitrogen 18 mg/dL (8-23); Calcium 9.4 mg/dL (8.5-10.5); Carbon Dioxide 27 mmol/L (22-29); Chloride 100 mmol/L (98-107); Globulin 3.3 g/dL (1.3-4.6); Glucose 136 mg/dL (65-115); Lactate Dehydrogenase 407 U/L (135-225); Osmolality Calculated 290 mOsm/kg (285-295); Sodium 138 mmol/L (136-145); Total Bilirubin 0.4 mg/dL (0.15-1.2); Total Protein 7.3 g/dL (6.6-8.7)
== END 2023-09-22 23:59 | disposition home or self-care (01) ==
PROVIDERS: PCP Emergency Medicine Emergency Medical Services; Visit Provider Internal Medicine Medical Oncology
DX: D45 Polycythemia vera (principal); R53.83 Other fatigue; Z87.891 Personal history of nicotine dependence
CPT/HCPCS: 36415; 80053; 83615; 85025; 99214

== ENCOUNTER → 2023-11-02 13:26 | Outpatient (BNVA) | payer OTHER, SELFPAY | PROVIDERS: PCP Emergency Medicine Emergency Medical Services; Visit Provider Internal Medicine | DX: I26.99 Other pulmonary embolism without acute cor pulmonale (principal); I25.2 Old myocardial infarction; Z86.73 Personal history of transient ischemic attack (TIA), and cerebral infarction without residual deficits; R00.1 Bradycardia, unspecified; Z87.891 Personal history of nicotine dependence | CPT/HCPCS: 99214 ==

== ENCOUNTER 2023-11-22 12:55 | Oncology outpatient (recurring) (ONCR) | payer OTHER, SELFPAY ==
[2023-11-22 13:30] LABS: Basophils # 0.1 10^3/uL (0.0-0.1); Basophils % 0.9 %; Eosinophils # 0.2 10^3/uL (0.0-0.8); Eosinophils % 1.3 %; Hematocrit 50.7 % (37-53); Mean Corpuscular Hemoglobin 24.6 pg (27-33); Mean Corpuscular Volume 77.1 fl (82-101); Mean Platelet Volume 9.3 fL (7.4-10.4); Monocytes # 1.2 10^3/uL (0.2-0.9); Monocytes % 9.6 %; Neutrophils # 9.13 10^3/uL (1.8-7.7); Neutrophils % 71.7 %; Nucleated Red Blood Cells % 0 %; Platelet Count 879 10^3/cmm (157-399); Red Blood Count 6.58 10^6/uL (3.85-5.65); White Blood Count 12.72 10^3/uL (3.29-11.43)
[2023-11-22 13:46] LABS: Alanine Aminotransferase 9 U/L (0-41); Alkaline Phosphatase 86 U/L (40-130); Anion Gap 13.8 (5-19); Aspartate Amino Transferase 19 U/L (0-40); Blood Urea Nitrogen 18 mg/dL (8-23); Calcium 9.2 mg/dL (8.5-10.5); Carbon Dioxide 26 mmol/L (22-29); Chloride 104 mmol/L (98-107); Globulin 3.4 g/dL (1.3-4.6); Glucose 99 mg/dL (65-115); Lactate Dehydrogenase 393 U/L (135-225); Osmolality Calculated 290 mOsm/kg (285-295); Potassium 4.8 mmol/L (3.5-5.1); Sodium 139 mmol/L (136-145); Total Bilirubin 0.5 mg/dL (0.15-1.2); Total Protein 7.4 g/dL (6.6-8.7)
== END 2023-12-21 23:59 | disposition home or self-care (01) ==
LOC: ONCMED 12:56
PROVIDERS: PCP Emergency Medicine Emergency Medical Services; Visit Provider Internal Medicine Medical Oncology
DX: D45 Polycythemia vera (principal); R53.83 Other fatigue; Z87.891 Personal history of nicotine dependence
CPT/HCPCS: 36415; 80053; 83615; 85025; 99214

== ENCOUNTER 2025-02-27 11:59 | Oncology outpatient (recurring) (ONCR) | payer OTHER, SELFPAY ==
[2025-02-27 12:35] LABS: Hematocrit 50.6 % (37-53); Hemoglobin 15.70 g/dL (11.27-16.99); Mean Corpuscular HGB Conc 31.0 g/dL (30-55); Mean Corpuscular Hemoglobin 21.5 pg (27-33); Mean Corpuscular Volume 69.2 fl (82-101); Nucleated Red Blood Cells % 0 %; Red Blood Count 7.31 10^6/uL (3.85-5.65); White Blood Count 19.71 10^3/uL (3.29-11.43)
[2025-02-27 12:37] LABS: Platelet Count 2111 10^3/cmm (157-399)
[2025-02-27 12:43] LABS: Alanine Aminotransferase 8 U/L (0-41); Albumin Level 3.8 g/dL (3.5-5.2); Alkaline Phosphatase 101 U/L (40-130); Anion Gap 14.4 (5-19); Aspartate Amino Transferase 17 U/L (0-40); Blood Urea Nitrogen 21 mg/dL (8-23); Calcium 9.0 mg/dL (8.5-10.5); Carbon Dioxide 23 mmol/L (22-29); Chloride 103 mmol/L (98-107); Creatinine Clr Calc Pharmacy 55.3793; Globulin 3.3 g/dL (1.3-4.6); Glucose 87 mg/dL (65-115); Osmolality Calculated 284 mOsm/kg (285-295); Potassium 4.4 mmol/L (3.5-5.1); Sodium 136 mmol/L (136-145); Total Protein 7.1 g/dL (6.6-8.7)
== END 2025-03-22 23:59 | disposition home or self-care (01) ==
PROVIDERS: PCP Emergency Medicine Emergency Medical Services; Visit Provider Internal Medicine Medical Oncology
DX: D45 Polycythemia vera (principal); R03.0 Elevated blood-pressure reading, without diagnosis of hypertension; Z87.891 Personal history of nicotine dependence; Z79.82 Long term (current) use of aspirin
CPT/HCPCS: 36415; 80053; 83615; 85025; 99214

== ENCOUNTER 2025-03-28 10:03 | Oncology outpatient (recurring) (ONCR) | payer OTHER, SELFPAY ==
[2025-03-28 10:47] LABS: Hematocrit 52.1 % (37-53); Hemoglobin 16.40 g/dL (11.27-16.99); Mean Corpuscular HGB Conc 31.5 g/dL (30-55); Mean Corpuscular Hemoglobin 22.1 pg (27-33); Mean Corpuscular Volume 70.2 fl (82-101); Nucleated Red Blood Cells % 0 %; Platelet Count 804 10^3/cmm (157-399); Red Blood Count 7.42 10^6/uL (3.85-5.65); White Blood Count 12.91 10^3/uL (3.29-11.43)
[2025-03-28 11:10] LABS: Alanine Aminotransferase 11 U/L (0-41); Albumin Level 3.9 g/dL (3.5-5.2); Alkaline Phosphatase 99 U/L (40-130); Anion Gap 15.6 (5-19); Aspartate Amino Transferase 17 U/L (0-40); Blood Urea Nitrogen 21 mg/dL (8-23); Calcium 9.3 mg/dL (8.5-10.5); Carbon Dioxide 23 mmol/L (22-29); Chloride 104 mmol/L (98-107); Creatinine Clr Calc Pharmacy 59.2510; Globulin 3.4 g/dL (1.3-4.6); Glucose 102 mg/dL (65-115); Osmolality Calculated 289 mOsm/kg (285-295); Potassium 4.6 mmol/L (3.5-5.1); Sodium 138 mmol/L (136-145); Total Protein 7.3 g/dL (6.6-8.7)
== END 2025-04-22 23:59 | disposition home or self-care (01) ==
PROVIDERS: PCP Family Medicine; Visit Provider Internal Medicine Medical Oncology
DX: D45 Polycythemia vera (principal); R03.0 Elevated blood-pressure reading, without diagnosis of hypertension; M25.50 Pain in unspecified joint; Z87.891 Personal history of nicotine dependence; Z79.82 Long term (current) use of aspirin; Z79.899 Other long term (current) drug therapy
CPT/HCPCS: 36415; 80053; 85025; 99214

== ENCOUNTER 2025-04-25 10:11 | Oncology outpatient (recurring) (ONCR) | payer OTHER, SELFPAY ==
[2025-04-25 10:37] LABS: Hematocrit 53.5 % (37-53); Hemoglobin 16.80 g/dL (11.27-16.99); Mean Corpuscular HGB Conc 31.4 g/dL (30-55); Mean Corpuscular Hemoglobin 23.7 pg (27-33); Mean Corpuscular Volume 75.6 fl (82-101); Nucleated Red Blood Cells % 0 %; Platelet Count 653 10^3/cmm (157-399); Red Blood Count 7.08 10^6/uL (3.85-5.65); White Blood Count 13.54 10^3/uL (3.29-11.43)
[2025-04-25 10:56] LABS: Alanine Aminotransferase 17 U/L (0-41); Albumin Level 4.1 g/dL (3.5-5.2); Alkaline Phosphatase 114 U/L (40-130); Anion Gap 14.3 (5-19); Aspartate Amino Transferase 24 U/L (0-40); Blood Urea Nitrogen 20 mg/dL (8-23); Calcium 9.5 mg/dL (8.5-10.5); Carbon Dioxide 26 mmol/L (22-29); Chloride 103 mmol/L (98-107); Creatinine Clr Calc Pharmacy 59.2510; Globulin 3.7 g/dL (1.3-4.6); Glucose 101 mg/dL (65-115); Osmolality Calculated 291 mOsm/kg (285-295); Potassium 4.3 mmol/L (3.5-5.1); Sodium 139 mmol/L (136-145); Total Protein 7.8 g/dL (6.6-8.7)
== END 2025-05-22 23:59 | disposition home or self-care (01) ==
PROVIDERS: PCP Family Medicine; Visit Provider Internal Medicine
DX: D45 Polycythemia vera (principal); R03.0 Elevated blood-pressure reading, without diagnosis of hypertension; Z87.891 Personal history of nicotine dependence; Z79.82 Long term (current) use of aspirin; Z79.899 Other long term (current) drug therapy
CPT/HCPCS: 36415; 80053; 83615; 85025; 99213

== ENCOUNTER → 2025-04-30 14:46 | Outpatient (BNVA) | payer OTHER, SELFPAY | PROVIDERS: PCP Family Medicine; Visit Provider Internal Medicine | DX: Z01.818 Encounter for other preprocedural examination (principal); Z86.711 Personal history of pulmonary embolism; I25.2 Old myocardial infarction; Z86.73 Personal history of transient ischemic attack (TIA), and cerebral infarction without residual deficits; R00.1 Bradycardia, unspecified; H26.9 Unspecified cataract | CPT/HCPCS: 99214 ==

== ENCOUNTER 2025-05-28 12:12 | Emergency (ER) | payer OTHER, SELFPAY ==
--- OUTSIDE RECORDS SUMMARY | 2024-01-13 04:00 | XMS_ITS ---
Author Organization [facility] Address [address] [address] Care Team Providers Care Bi Data Architect Name Role Phone Migration, Provider Unavailable Unavailable REASON FOR VISIT EMR-Jaret Vital Signs Temperature 98.2 degrees Fahrenheit 01/13/20 24 Blood pressure systolic 128 mm Hg 01/13/20 24 Blood pressure diastolic 79 mm Hg 024 Heart Rate 65 /min 01/13/2024 Respiratory Rate 19 /min 01/13/2024 Height 73.000 in 01/13/2024 Weight 234.991 lbs 01/13/2024 BMI 31.00 kg/m2 01/13/2024 Oximetry 96 % 01/13/2024 BMI Percentile 31.0 % 01/13/2024 Height-cm 185.42 cm 01/13/2024 Weight-kg 106.59 kg 01/13/2024 Encounters Encounter Location Date Provider Diagnosis [facility] [address] [address] 01/13/2024 Provider Migration Plan Of Treatment No Information Progress Notes * THAO YODERDOB:1945 (80 yo M)Acc No.[id number]:01/13/2024 Patient: THAO HAMMONDS Provider: :1945 A ge:78 Y S ex:Male Date:01/13/2024 Phone: Address: [address] [id number] Subjective: * Chief Complaints: * E MR-Jaret Objective: * Vitals: B P: 128/79 mm Hg, HR: 65 /min, RR: 19 /min, Temp: 98.2 F, Oxygen sat %: 96 %, Wt: 234.991 lbs, Wt-k.59 kg, Ht: 73.000 in, Ht-cm: 185.42 cm, BMI: 31.00 Index, BMI %: 31.0 %. Plan: * Procedure Codes: 9 3000 -ELECTROCARDIOGRAM, COMPLETE Billing Information: * Procedure Codes: 31515 -ELECTROCARDIOGRAM, COMPLETE. * Electronic signature of Prov ider Migration on 05/28/2025 at 12:15 PM CDT Sign off status: Pending * Provider: Date: 0 01/13/2024 Generated for Watson linares/Jennifer/Rossitting on: 1 12:15 PM CDT
--- OUTSIDE RECORDS SUMMARY | 2025-05-12 04:00 | XMS_ITS ---
Author Organization [facility] Address [address] [address] Care Team Providers Care Recycling Technician Name Role Phone Migration, Provider Unavailable Unavailable REASON FOR VISIT EMR-Jaret Encounters Encounter Location Date Provider Diagnosis [facility] [address] [address] 05/12/2025 Provider Migration Plan Of Treatment No Information Progress Notes * THAO YODERDOB:1945 (80 yo M)Acc No.[id number]:05/12/2025 Patient: GOMEZ HAMMONDSNIS :1945 A ge:80 Y S ex:Male Phone: Address: [place], [address] Subjective: * Chief Complaints: * E MR-Jaret * * Date:
--- OUTSIDE RECORDS SUMMARY | 2025-05-13 04:00 | XMS_ITS ---
Author Organization [facility] Address [address] [address] Care Team Providers Care Manager Reading Name Role Phone Migration, Provider Unavailable Unavailable Allergies No Known Allergies REASON FOR VISIT EMR-Jaret Encounters Encounter Location Date Provider Diagnosis [facility] [address] [address] 05/13/2025 Provider Migration Plan Of Treatment No Information Progress Notes * THAO YODERDOB:1945 (80 yo M)Acc No.[id number]:05/13/2025 Patient: THAO HAMMONDS :1945 A ge:80 Y S ex:Male Phone: Address: [place], [address] Subjective: * Chief Complaints: * E MR-Jaret * Allergies: N .K.D.A. * * Date:
--- OUTSIDE RECORDS SUMMARY | 2025-05-28 12:15 | XMS_ITS | Patient Health Record ---
Author Organization [facility] Address [address] [address] Care Team Providers Care Plan Consultant Name Role Phone Migration, Provider Unavailable Unavailable Allergies No Known Allergies Reason For Referral No Information Encounters Encounter Location Date Provider Diagnosis [facility] [place] [address] [place] [phone] 05/12/2025 Provider Migration [facility] [address] [place] [address] [address] [place] [address] 05/13/2025 Provider Migration Plan Of Treatment No Information
--- OUTSIDE RECORDS SUMMARY | 2025-05-28 12:16 | XMS_ITS | Clinical Summary ---
Author Organization [facility] Address [address] [facility] [place] [address] Phone Care Team Providers Care Emergency Doctor Name Role Phone Unavailable Primary Care Provider Unavailabl e Allergies No known active allergies Medications clopidogreL (PLAVIX) 75 mg Tablet Take 1 Tablet (75 mg) by mouth daily. 90 Tablet 3 03/19/2023 Active aspirin (ECOTRIN EC) 81 mg Tablet, Delayed Release (E.C.) Take 1 Tablet (81 mg) by mouth daily. 03/20/2023 Active atorvastatin (LIPITOR) 80 mg tablet Take 1 Tablet (80 mg) by mouth daily at bedtime. 90 Tablet 3 03/19/2023 Active lisinopriL (PRINIVIL) 5 mg tablet Take 1 Tablet (5 mg) by mouth daily. 90 Tablet 3 03/20/2023 Active Active Problems Problem Noted Date Diagnosed Date NSTEMI (non-ST elevated myocardial infarction) 0 03/18/2023 Essential thrombocytosis 03/18/2023 H/O: CVA (cerebrovascular accident) 03/18/2023 Sinus bradycardia 03/18/2023 History of stroke without residual deficits 02/21 HTN (hypertension), benign 03/18/2023 Family History Medical History Relation Name Comments No Known Problems Father No Known Problems Mother Relation Name Status Comments Father Mother Social History Tobacco Use Types Packs/Day Years Used Date Smoking Tobacco: Former Cigarettes Q uit: 1982 Alcohol Use Standard Drinks/Week Comments Not Currently 0 (1 standard drink = 0.6 oz pur e alcohol) Feeling Safe Answer Date Recorded Are you in a relationship wi th someone who hurts you emotionally and/or physically? No 03/18/2023 Sex and Gender Information Value Date Recorded Sex Assigned at Not on file Legal Sex Male 12:14 PM CDT Gender Identity Not on file Sexual Orientation Not on file Last Filed Vital Signs Vital Sign Reading Time Taken Comments Blood Pressure 124/53 03/19/2023 12:00 PM CDT Pulse 58 03/18/2023 6:45 PM CDT Temperature 37.6 C (99.6 F) 03/19/2023 7:00 AM CDT Respiratory Rate 16 03/19/2023 12:00 PM CDT Oxygen Saturation 98% 03/18/2023 4:00 PM CDT Inhaled Oxygen Concentration - - Weight 109.3 kg (241 lb) 03/18/2023 12:25 PM CDT Height 185.4 cm (6' 1 ) 03/18/2023 12:25 PM CDT Body Mass Index 31.8 03/18/2023 12:25 PM CDT Plan of Treatment Health Maintenance Due Date Last Done Comments DTAP/TDAP/TD VACCINES (1 - Tdap) 10/30/2014 10/30/19 15, 05/27/2004 PNEUMOCOCCAL VACCINE 50+ YEA RS (2 of 2 - PCV20 or PCV21) 10/30/2015 10/29/2014, 07/26/2008 RSV VACCINE (60+ or ) (1 - 1-dose 75+ series) 2018 ZOSTER VACCINE (2 of 2) 12/02/2022 10/07/2022 INFLUENZA VACCINE (#1) 2025 2, 10/07/2021, 05/03/2020, Additional history exists Medical Devices Implanted Type [place] [facility] Device Identifier Shelf Expiration Date Model / Serial / Lot Dev Celt Acd Vasc Closure [facility] - [id number] Implanted:Qty : 1 on 03/18/2023 by Ana Luisa Sofia MD at [facility] Closure Device Right: Groin VASORUM 12/02/2025 [facility]-06 / / [id number] Stent Synergy Megatron 5.0x32mm Evrlms Elut [id number] - [id number] Implanted:Qty : 1 on 03/18/2023 by Ana Luisa Sofia MD at [facility] Stent Right: Coronary [employer] 06/10/2023 [id number] / / [id number] Insurance [facility] [employer] Advance Directives For more information, please contact: [phone] * Full Code (Latest Code Status on File) Date Activated Date Inactivated Comments 03/18/2023 4:22 PM 03/19/2023 5:21 PM
[2025-05-28 12:31] VITALS: BP 133/73; PULSE 55; RESP 16; TEMP 36.6; O2SAT 97; BMI 29.0
--- NOTE | 2025-05-28 13:17 | CT_ITS ---
WS: [id number] CT ABDOMEN PELVIS TECHNIQUE: Noncontrast CT of the abdomen and pelvis with coronal and sagittal reformatted images. CLINICAL INFORMATION: flank pain COMPARISON: None. DLP: 879.[address] scans at [facility] use at least one of these dose optimization techniques: automated exposure control; mA and/or kV adjustment per patient size (includes targeted exams where dose is matched to clinical indication); or iterative reconstruction. FINDINGS: No hydronephrosis in either kidney. No obstructing renal or ureteral calculi. Bilateral nonobstructing renal parenchymal calculi. Adrenal glands are normal. Coronary calcification. Normal noncontrast liver and spleen. Cholecystectomy clips. Enlarged prostate measuring 5.0 cm. Diffuse bladder wall thickening compatible with laterality obstruction. Fatty atrophy of the pancreas. Normal caliber abdominal aorta. Calcification. Sigmoid diverticulosis. No evidence of acute diverticulitis. Advanced spondylitic changes lumbar spine. CT/CT kidney stone [id number] IMPRESSION: 1. No hydronephrosis in either kidney. No obstructing renal or ureteral calcul i. 2. Diffuse bladder wall thickening compatible with chronic cystitis or bladder outlet obstruction. Enlarged calcified prostate. Recommend correlation PSA. 3. Coronary calcification. 4. Prior cholecystectomy. 5. Sigmoid diverticulosis. No evidence of acute diverticulitis. 6. Advanced spondylitic changes lumbar spine. Moderate central canal stenosis L1-2 and L2-3.
--- NOTE | 2025-05-28 13:28 | W.ED.BACK ---
HPI - Back Pain/Injury General: Chief Complaint: Back Pain/Injury Stated Complaint: Pain in left side Time Seen by Provider: 05/28/25 13:24 History of Present Illness: 80-year-old man with a history of pulmonary embolism (not currently on any anticoagulation), stroke, coronary artery disease, BPH and polycythemia who presents to the emergency room with flank pain. He says he has had kidney stones in the past. No urinary symptoms. No injury. Does not hurt with movement. No fevers. No altered mental status. No focal motor deficits. Related Data Home Medications ?Medication ?Instructions ?Recorded ?Confirmed allopurinol 300 mg tablet mg PO 02/27/25 04/30/25 lisinopril 20 mg tablet mg PO 02/27/25 04/30/25 Previous Rx's ?Medication ?Instructions ?Recorded hydroxyurea 500 mg capsule (Hydrea) 500 mg PO BID #60 caps 02/27/25 aspirin 81 mg tablet 81 mg PO DAILY #90 tabs 04/30/25 cefdinir 300 mg capsule 300 mg PO BID 10 days #20 caps 05/28/25 cyclobenzaprine 5 mg tablet 5 mg PO BEDTIME PRN muscle spasm 05/28/25 #10 tabs dexamethasone 6 mg tablet 6 mg PO DAILY 5 days #5 tabs 05/28/25 Allergies Allergy/AdvReac Type Severity Reaction Status Date / Time No Known Allergies Allergy Verified 04/30/25 15:00 Review of Systems Narrative: Constitutional symptoms: Negative except as documented in HPI. Skin symptoms: Negative except as documented in HPI. Eye symptoms: Negative except as documented in HPI. ENMT symptoms: Negative except as documented in HPI. Respiratory symptoms: Negative except as documented in HPI. Cardiovascular symptoms: Negative except as documented in HPI. Gastrointestinal symptoms: Negative except as documented in HPI. Genitourinary symptoms: Negative except as documented in HPI. Musculoskeletal symptoms: Negative except as documented in HPI. Neurologic symptoms: Negative except as documented in HPI. Psychiatric symptoms: Negative except as documented in HPI. Endocrine symptoms: Negative except as documented in HPI. PFSH ED PFSH: Medical History (Updated 05/28/25 @ 15:25 by Emi Marquez MD) Pulmonary embolism History of stroke History of myocardial infarction Coronary artery disease Benign prostatic hyperplasia Vitamin D deficiency Erectile dysfunction Polycythemia rubra vera Surgical History History of coronary artery stent placement History of cholecystectomy History of foot surgery Bone spur both heels History of back surgery Family History Father Lung disease Denies family history of Diabetes CAD (coronary artery disease) Clotting disorder Dementia Hyperlipidemia Psychiatric illness Chronic kidney disease (CKD) Suicide Anesthesia complication Bleeding disorder Cancer Hypertension Stroke Social History Smoking and tobacco/nicotine status: never used tobacco/nicotine Quit status (tobacco/nicotine): has quit using Former quit date comment: smoked 6 months, stopped 30 years ago Physical Exam Narrative: EXAM NARRATIVE: General: Alert, no acute distress. Skin: Warm, dry. Head: Normocephalic, atraumatic. Neck: Supple, trachea midline. Eye: Extraocular movements are intact. Ears, nose, mouth and throat: mucosa moist. Cardiovascular: Regular, Normal peripheral perfusion. Respiratory: Lungs are clear to auscultation, respirations are non-labored, breath sounds are equal, Symmetrical chest wall expansion. Gastrointestinal: Soft, right flank pain that is not re producible, Non distended Musculoskeletal: Normal ROM, no deformity. Neurological: Alert and oriented, No focal neurological deficit observed. Psychiatric: Cooperative, appropriate mood & affect. Course Vital Signs: Vital signs: Vital Signs Temperature 97.9 F 05/28/25 12:31 Pulse Rate 55 L 05/28/25 12:31 Respiratory Rate 16 05/28/25 12:31 Blood Pressure 153/83 05/28/25 15:00 Pulse Oximetry 96 05/28/25 15:00 Oxygen Delivery Me thod Room Air 05/28/25 15:00 MDM - Back Pain/Injury Medical Decision Making Medical decision making: Differential diagnosis including but not limited to and based on the above HPI, review of systems and physical exam: In this patient with flank pain would have concern for: Ureterolithiasis. Urinary tract infection. Appendicitis. Cholecystitis. Musculoskeletal / back pain. Pyelonephritis. Orders placed to evaluate differential diagnosis based on the above differential, HPI and physical exam Lab Review: Laboratory results were reviewed and interpreted by myself the emergency room physician. Mild leukocytosis. Platelets are high at 1600. Historically they have been high. It was over 2000 back in February. Had been down to 800 and 700 after that. Urine is positive for nitrate, leukocyte esterase, white cells and bacteria. Definitive infection. CT of the abdomen pelvis without contrast: No hydronephrosis in either kidney. No calculi. Bladder wall thickening consistent with chronic cystitis. Other findings as below. This was reviewed and interpreted by myself the emergency room physician. I also reviewed the radiology report. I reviewed the patient's medical record. 80-year-old man with a history of pulmonary embolism (not currently on any anticoagulation), stroke, coronary artery disease, BPH and polycythemia . Thrombophilia Reexamination: Patient remained stable. No increased work of breathing. No altered mental status. No focal motor deficits. Assessment and plan: Urinary tract infection Flank pain ? IM Rocephin in the emergency room - Discharged home - Discussed plan with patient. Answered any questions. - Evaluation and treatment of this problem were appropriate in the emergency setting. Labs 05/28/25 13:25 05/28/25 13:25 Radiology Impressions Abdomen/Pelvis CT 05/28/25 13:17 IMPRESSION: 1. No hydronephrosis in either kidney. No obstructing renal or ureteral calculi. 2. Diffuse bladder wall thickening compatible with chronic cystitis or bladder outlet obstruction. Enlarged calcified prostate. Recommend correlation PSA. 3. Coronary calcification. 4. Prior cholecystectomy. 5. Sigmoid diverticulosis. No evidence of acute diverticulitis. 6. Advanced spondylitic changes lumbar spine. Moderate central canal stenosis L1-2 and L2-3. Laboratory Results WBC 11.96 10^3/uL (3.29-11.43) H 05/28/25 13:25 RBC 6.81 10^6/uL (3.85-5.65) H 05/28/25 13:25 Hgb 16.90 g/dL (11.27-16.99) 05/28/25 13:25 Hct 54.0 % (37-53) H 05/28/25 13:25 MCV 79.3 fl (82-101) L 05/28/25 13:25 MCH 24.8 pg (27-33) L 05/28/25 13:25 MCHC 31.3 g/dL (30-55) 05/28/25 13:25 RDW Not Reportable 05/28/25 13:25 Plt Count 1602 10^3/cmm (157-399) H* 05/28/25 13:25 MPV 9.3 fL (7.4-10.4) 05/28/25 13:25 Neut % (Auto) 70.5 % 05/28/25 13:25 Lymph % (Auto) 16.1 % 05/28/25 13:25 Crisp % (Auto) 9.4 % 05/28/25 13:25 Eos % (Auto) 2.3 % 05/28/25 13:25 Baso % (Auto) 1.4 % 05/28/25 13:25 Neut # (Auto) 8.43 10^3/uL (1.8-7.7) H 05/28/25 13:25 Lymph # (Auto) 1.9 10^3/uL (0.8-4.8) 05/28/25 13:25 Crisp # (Auto) 1.1 10^3/uL (0.2-0.9) H 05/28/25 13:25 Eos # (Auto) 0.3 10^3/uL (0.0-0.8) 05/28/25 13:25 Baso # (Auto) 0.2 10^3/uL (0.0-0.1) H 05/28/25 13:25 Nucleated RBC % (auto) 0 % 05/28/25 13:25 Nucleated RBCs # 0.0 /100WBC 05/28/25 13:25 Sodium 138 mmol/L (136-145) 05/28/25 13:25 Potassium 4.5 mmol/L (3.5-5.1) 05/28/25 13:25 Chloride 103 mmol/L (98-107) 05/28/25 13:25 Carbon Dioxide 23 mmol/L (22-29) 05/28/25 13:25 Anion Gap 16.5 (5-19) 05/28/25 13:25 BUN 26 mg/dL (8-23) H 05/28/25 13:25 Creatinine 1.2 mg/dL (0.7-1.2) 05/28/25 13:25 GFR Calculation Not Reportable 05/28/25 13:25 Glucose 99 mg/dL (65-115) 05/28/25 13:25 Calculated Osmolality 291 mOsm/kg (285-295) 05/28/25 13:25 Calcium 9.3 mg/dL (8.5-10.5) 05/28/25 13:25 Total Bilirubin 0.6 mg/dL (0.15-1.2) 05/28/25 13:25 AST 18 U/L (0-40) 05/28/25 13:25 ALT 13 U/L (0-41) 05/28/25 13:25 Alkaline Phosphatase 118 U/L (40-130) 05/28/25 13:25 Total Protein 7.8 g/dL (6.6-8.7) 05/28/25 13:25 Albumin 4.2 g/dL (3.5-5.2) 05/28/25 13:25 Globulin 3.6 g/dL (1.3-4.6) 05/28/25 13:25 Urine Color Yellow (Yellow) 05/28/25 14:02 Urine Appearance Turbid (CLEAR) A 05/28/25 14:02 Urine pH 5.5 (5-7) 05/28/25 14:02 Ur Specific [place] 1.015 (1.005-1.030) 05/28/25 14:02 Urine Protein 1+ (Negative) A 05/28/25 14:02 Urine Glucose (UA) Negative (Normal) 05/28/25 14:02 Urine Ketones Negative (Negative) 05/28/25 14:02 Urine Blood 2+ (Negative) A 05/28/25 14:02 Urine Nitrate Positive (Negative) A 05/28/25 14:02 Urine Bilirubin Negative (Negative) 05/28/25 14:02 Urine Urobilinogen 1.0 mg/dL (Negative) 05/28/25 14:02 Ur Leukocyte Esterase 3+ (Negative) A 05/28/25 14:02 Urine RBC 5-10 /hpf (0-2) H 05/28/25 14:02 Urine WBC >100 /hpf (0-5) H 05/28/25 14:02 Ur Squamous Epith Cells 5-10 /hpf (0-5) H 05/28/25 14:02 Amorphous Sediment Not Reportable 05/28/25 14:02 Urine Bacteria 3+ /hpf (NONE) H 05/28/25 14:02 Urine Mucus 1+ /hpf 05/28/25 14:02 All radiology interpretation(s) finalized by discharge Discharge Plan Discharge Patient Disposition: Home Clinical Impression: Urinary tract infection, Low back pain Condition: Stable Prescriptions: New dexamethasone 6 mg tablet 6 mg PO DAILY 5 Days Qty: 5 0RF cyclobenzaprine 5 mg tablet 5 mg PO BEDTIME PRN (Reason: muscle spasm) Qty: 10 0RF cefdinir 300 mg capsule 300 mg PO BID 10 Days Qty: 20 0RF No Action aspirin 81 mg tablet 81 mg PO DAILY Qty: 90 3RF lisinopril 20 mg tablet PO allopurinol 300 mg tablet PO hydroxyurea [Hydrea] 500 mg capsule 500 mg PO BID Qty: 60 3RF Discharge Orders: Discharge ED (Routine); Ordered 05/28/25 Ordered By: Emi Marquez Referrals: Rubi Mohr MD [Primary Care Provider, [facility]] Discharge Diet: Usual diet Discharge Activity: Increase activity as tolerated Patient Instructions: Flank Pain (ED), Urinary Tract Infection in Older Adults (ED), Opioid Safety, Pain Management, Patient Portal & Aravind Instructions Activity Restrictions/Additional Instructions: Thank you for choosing [facility] for your healthcare needs today. You have been screened and evaluated and felt safe for discharge. Health conditions do change or evolve sometimes and as such it is important that you follow up with your Primary Doctor to be re checked, 3-5 days is a general good time frame for follow up. You are always welcome to return to the ED for re assessment if your symptoms are worsening or you have new concerns Print Language: Romanian Coding Level of Care Code ED Public Address Technician for Lawrence Emerson
[2025-05-28 13:47] LABS: Hematocrit 54.0 % (37-53); Hemoglobin 16.90 g/dL (11.27-16.99); Mean Corpuscular HGB Conc 31.3 g/dL (30-55); Mean Corpuscular Hemoglobin 24.8 pg (27-33); Mean Corpuscular Volume 79.3 fl (82-101); Nucleated Red Blood Cells % 0 %; Red Blood Count 6.81 10^6/uL (3.85-5.65); White Blood Count 11.96 10^3/uL (3.29-11.43)
[2025-05-28 13:55] LABS: Alanine Aminotransferase 13 U/L (0-41); Albumin Level 4.2 g/dL (3.5-5.2); Alkaline Phosphatase 118 U/L (40-130); Anion Gap 16.5 (5-19); Aspartate Amino Transferase 18 U/L (0-40); Blood Urea Nitrogen 26 mg/dL (8-23); Calcium 9.3 mg/dL (8.5-10.5); Carbon Dioxide 23 mmol/L (22-29); Chloride 103 mmol/L (98-107); Creatinine Clr Calc Pharmacy 58.9774; Globulin 3.6 g/dL (1.3-4.6); Glucose 99 mg/dL (65-115); Osmolality Calculated 291 mOsm/kg (285-295); Potassium 4.5 mmol/L (3.5-5.1); Sodium 138 mmol/L (136-145); Total Protein 7.8 g/dL (6.6-8.7)
[2025-05-28 14:05] VITALS: BP 158/78; O2SAT 93
[2025-05-28 14:13] LABS: Platelet Count 1602 10^3/cmm (157-399)
[2025-05-28 14:14] LABS: Slide Review Slide Review Perform
[2025-05-28 14:20] LABS: Glucose Urine UA Negative (Normal); Nitrate Urine Positive (Negative); Specific Gravity, Urine 1.015 (1.005-1.030)
[2025-05-28 15:00] VITALS: BP 153/83; O2SAT 96
[2025-05-28 15:17] LABS: Add Urine Microscopic? YES
[2025-05-28] MEDS: cefTRIAXone 1,000 MG in water for injection-sterile 2.1 ML 2.1 MG IM (15:49)
[2025-05-28 15:53] VITALS: BP 142/65; PULSE 56; RESP 16; O2SAT 96
== END 2025-05-28 15:54 | disposition home or self-care (01) ==
PROVIDERS: Physician Assistant; Emergency Provider Emergency Medicine; PCP Family Medicine
DX: N39.0 Urinary tract infection, site not specified (principal); M54.50 Low back pain, unspecified; Z79.82 Long term (current) use of aspirin; Z87.891 Personal history of nicotine dependence; I25.10 Atherosclerotic heart disease of native coronary artery without angina pectoris; Z86.73 Personal history of transient ischemic attack (TIA), and cerebral infarction without residual deficits
CPT/HCPCS: 36415; 74176; 80053; 81001; 85025; 87077; 87086; 87186; 96372; 99214; 99284; J0696

== ENCOUNTER 2025-05-28 16:05 | Oncology outpatient (recurring) (ONCR) | payer OTHER, SELFPAY | END 2025-06-22 23:59 | disposition home or self-care (01) | PROVIDERS: PCP Family Medicine; Visit Provider Internal Medicine | DX: Z53.9 Procedure and treatment not carried out, unspecified reason (principal) ==